=== PATIENT | male | born 1980 | race Caucasian/White ===

== ENCOUNTER 2016-04-22 08:30 | Inpatient (IN) | payer BC ==
[~2016-04-22 08:30] MED LIST: GINGER PO; LOPERAMIDE2 M2 PO; NAPROXEN; ZOFRAN ODT4 MG PO
[2016-04-22] MEDS ORDERED: BACTRIM DS TAB1 EAC2 PO (08:43)
[2016-04-22] MEDS ORDERED: TYLENOL WITH C1 EACH PO (08:43)
[2016-04-22 15:16] LABS: BASO % 0.4 % (0-2); EOSINOPHIL ABSOLUTE COUNT 0.1 tho/cmm (0.0-0.7); HCT-HEMATOCRIT 43.4 % (36.0-53.5); IMMATURE GRANULOCYTES ABSOLUTE 0.03 tho/cmm (0-0.03); IMMATURE GRANULOCYTES PERCENT 0.4 % (0-0.3); LYMPH % 12.1 % (20-45); LYMPH ABSOLUTE COUNT 0.9 tho/cmm (0.8-4.5); MCH (MEAN CORPUSCULAR HGB) 31.1 pg (28.0-32.0); MCHC MEAN CORPUSCULAR HGB CONC 34.6 % (32.0-36.0); MONO % 11.5 % (0-12); MONOCYTE ABSOLUTE COUNT 0.9 tho/cmm (0.0-1.2); NEUTROPHIL ABSOLUTE COUNT 5.8 tho/cmm (1.6-8.0); NEUTROPHIL-AUTOMATED 5.8 tho/cmm (1.6-8.0); NEUTROPHILS % 74.6 % (40-80); PLATELET COUNT 285 tho/cmm (150-450); RED BLOOD COUNT 4.82 mil/cmm (4.40-5.70); RED CELL DISTRIBUTION WIDTH 12.4 % (12.4-16.4); WHITE BLOOD COUNT 7.7 tho/cmm (4.0-10.0)
[2016-04-22 15:26] LABS: ANION GAP 12 mmol/L (0-20); BLOOD UREA NITROGEN 15 mg/dl (6-24); CARBON DIOXIDE-VENOUS 24 mmol/L (22-32); CHLORIDE 107 mmol/l (96-110); CREATININE 1.46 mg/dl (0.60-1.30); GLUCOSE 88 mg/dL (70-110); SODIUM 139 mmol/L (135-145); eGFR VALUE FOR BLACK 70 mL/Min
[2016-04-25] MEDS ORDERED: NORCO 5-325 TA1 EACH PO (10:30)
[2016-04-25] MEDS ORDERED: COLACE100 M1 PO (10:31)
[2016-04-25] MEDS ORDERED: [UNRECOGNIZED DRUG - OTHER] TP (10:37)
== END 2016-04-25 15:10 | DRG 728 ==
LOC: WCC 08:30 → BURN 10:22
PROVIDERS: ADMIT Surgery
PROC: 02HV33Z Insertion of Infusion Device into Superior Vena Cava, Percutaneous Approach (ICD-10-PCS; principal; 2016-04-22)
DX: N49.2 Inflammatory disorders of scrotum (principal); I88.8 Other nonspecific lymphadenitis; F41.9 Anxiety disorder, unspecified; K21.9 Gastro-esophageal reflux disease without esophagitis
CPT/HCPCS: C1751; G0463; J0171; J2060; J2250; J2405; J2543; J3010; J3370